=== PATIENT | male | born 1990 ===

== ENCOUNTER → 2017-12-21 | Outpatient (CLI) | payer OTHER ==
[~2017-12-21] MED LIST: ALLEGRA ALLERG180 MG PO; GILTUSS TR TAB1 EACH PO; MAXITROL EYE O3.5 GM OP; PROVENTIL3 ML/2.5 M IH; SINGULAIR 10MG10 MG; SINGULAIR 10MG10 MG PO; SYMBICORT 80/10.2 GM
== END | disposition home or self-care (01) ==
LOC: PPHC 18:15
DX: J45.998 Other asthma (principal)

== ENCOUNTER → 2018-03-14 | Outpatient (CLI) | payer OTHER | END | disposition home or self-care (01) | LOC: PPHC 14:23 → EDBD 14:23 | DX: J45.998 Other asthma (principal) ==

== ENCOUNTER → 2018-03-14 | Emergency (ER) | payer OTHER ==
[~2018-03-14] VITALS: Ht 175.3 cm; Wt 95.3 kg
== END | disposition home or self-care (01) ==
LOC: ER 15:22
DX: J45.998 Other asthma (principal); J06.9 Acute upper respiratory infection, unspecified

== ENCOUNTER 2020-01-27 13:09 | Outpatient (CLI) | payer OTHER | END 2020-01-27 13:21 | disposition home or self-care (01) | LOC: LAB 13:09 | DX: J11.1 Influenza due to unidentified influenza virus with other respiratory manifestations (principal) ==